=== PATIENT | male | born 1965 | race Caucasian/White ===

== ENCOUNTER 2018-01-01 16:31 | Emergency (ER) | payer SELFPAY ==
[~2018-01-01] VITALS: Ht 185.4 cm; Wt 81.6 kg
[2018-01-01] MEDS ORDERED: fentaNYL INJECTION 100 MCG/2 ML AMP IVP ONE (16:45)
[2018-01-01] MEDS ORDERED: CATHETER FLUSH 10 ML SYR IV PRN (17:00)
[2018-01-01] MEDS ORDERED: NS 250 ML (IVPB) BAG IV ONE (17:00)
[2018-01-01] MEDS ORDERED: IOHEXOL 350 MG/ML 100 ML (OMNIPAQUE 350) VIAL IV ONE (17:00)
[2018-01-01 17:06] LABS: ALANINE AMINOTRANSFERASE 13 U/L (0-55); ALBUMIN 4.2 GM/DL (3.2-4.5); ALKALINE PHOSPHATASE 51 U/L (40-136); BILIRUBIN,TOTAL 0.3 MG/DL (0.1-1.0); BUN/CREATININE RATIO 15; CALCIUM 8.6 MG/DL (8.5-10.1); CARBON DIOXIDE 23 MMOL/L (21-32); CHLORIDE 107 MMOL/L (98-107); CREATININE SERUM 0.78 MG/DL (0.60-1.30); GFR ESTIMATED > 60; GLUCOSE 124 MG/DL (70-105); POTASSIUM 3.9 MMOL/L (3.6-5.0); SODIUM 140 MMOL/L (135-145)
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
--- NOTE | 2018-01-01 17:40 | Diagnostic Imaging Report ---
INDICATION: Pain. FINDINGS: There is a comminuted fracture of the mid to distal left clavicular diaphysis. AC joint is intact as is the glenohumeral joint. Left lung is clear. Soft tissues are unremarkable. IMPRESSION: Comminuted fracture of the mid to distal left clavicular diaphysis. Dictated by: Dictated on workstation # [id number]
[2018-01-01 17:44] LABS: BILIRUBIN,URINE NEGATIVE (NEGATIVE); CLARITY,URINE CLEAR; COLOR,URINE YELLOW; GLUCOSE, URINE (UA) NEGATIVE (NEGATIVE); KETONES,URINE NEGATIVE (NEGATIVE); LEUKOCYTE ESTERASE ,URINE NEGATIVE (NEGATIVE); NITRITE,URINE NEGATIVE (NEGATIVE); PH,URINE 6.5 (5-9); PROTEIN,URINE NEGATIVE (NEGATIVE); UROBILINOGEN,URINE NORMAL (NORMAL)
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
[2018-01-01 18:03] LABS: BACTERIA,URINE NEGATIVE /HPF
[2018-01-01 18:43] LABS: HEMOGLOBIN 13.5 G/DL (13.3-17.7); RED BLOOD COUNT 4.24 10^6/uL (4.35-5.85); RED CELL DISTRIBUTION WIDTH 13.2 % (10.0-14.5); WHITE BLOOD COUNT 7.9 10^3/uL (4.3-11.0)
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
[2018-01-01] MEDS ORDERED: OXYC-197 PO (19:14)
[2018-01-01] MEDS ORDERED: RX-OXYCODONE/APAP 5-325 MG #4 TAB PK PO PRN (19:15)
[2018-01-01 19:46] VITALS: BP 123/76
== END 2018-01-01 19:46 | disposition home or self-care (01) ==
LOC: EDUNIT# 16:31 → ER 16:33
DX: S42.022A Displaced fracture of shaft of left clavicle, initial encounter for closed fracture (principal); S22.42XA Multiple fractures of ribs, left side, initial encounter for closed fracture; R40.2142 Coma scale, eyes open, spontaneous, at arrival to emergency department; R40.2252 Coma scale, best verbal response, oriented, at arrival to emergency department; R40.2362 Coma scale, best motor response, obeys commands, at arrival to emergency department; V86.09XA Driver of other special all-terrain or other off-road motor vehicle injured in traffic accident, initial encounter
CPT/HCPCS: 36415; 70450; 71045; 71260; 72125; 73030; 74177; 80053; 81000; 85027

== ENCOUNTER → 2021-02-25 | Outpatient (CLI) | payer BC ==
[~2021-02-25] MED LIST: OXYC1TAB87 PO
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
== END ==
LOC: RAD 10:21
PROVIDERS: ATTEND Internal Medicine
DX: M47.22 Other spondylosis with radiculopathy, cervical region (principal); M48.02 Spinal stenosis, cervical region; G96.191 Perineural cyst
CPT/HCPCS: 72141

== ENCOUNTER → 2021-03-09 | Outpatient (CLI) | payer BC ==
[~2021-03-09] MED LIST changes: +GADOTERATE 0.5 MMOL/ML (CLARISCAN) 15 ML VIAL IV ONE
--- NOTE | 2021-03-09 14:43 | Diagnostic Imaging Report ---
CLINICAL INDICATION: Recent cervical spine MRI showed abnormality of the thoracic spine. Patient has neck and left shoulder pain. EXAM: MRI of the thoracic spine performed without and with 15 mL of Clariscan IV contrast. Sequences include sagittal T2, sagittal T1, sagittal T2 fat-sat, axial T2, axial T1, sagittal T1 fat-sat post IV contrast, and axial T1 post IV contrast. COMPARISON: MRI of the cervical spine without contrast dated 12/26/2020. FINDINGS: There is a CSF signal intensity fluid collection, which appears intradural and posterior to the thoracic spinal cord. This fluid collection is seen at the lower T1 vertebral body region and extends down to the lower T8 level. There is amorphous low T2 signal seen posteriorly at the T8-T9 level, which may represent flow artifact versus amorphous tissue. There is no other significant complexity of this fluid collection seen. There is significant mass effect upon the thoracic spinal cord displacing it anteriorly and decreasing the caliber of the thoracic spinal cord, seen from the lower T1 level to the lower T8 level. There is no abnormal enhancement involving the thoracic spinal cord or cystic structure. Considerations may include an arachnoid cyst. Subdural location for this fluid collection is suspected to be unlikely given its configuration. There is prominence of the central canal of the upper thoracic spinal cord at the T1 vertebral body level concerning for syrinx. There are degenerative spurs seen throughout the thoracic spine and facet arthropathy. There is no lumbar spine fracture or dislocation. There is moderate right T2-T3 neural foramen narrowing due to facet arthropathy. There is a small T6-T7 posterior disc herniation with annular tear. There is no significant central canal or neural foramen narrowing. There is a small T8-T9 left subarticular disc herniation. There is [id number]-[id number] left neural foramen narrowing. There is minimal central canal narrowing. There is a moderate-sized T9-T10 left paracentral/subarticular disc spur which causes moderate central canal stenosis. There is [id number]-egljka left neural foramen narrowing and no significant right neural foramen narrowing. There is T10-T11 hypertrophic facet arthropathy causing [id number]-yhylnnws central canal narrowing. The remainder of the lumbar spine shows no significant central canal or neural foramen narrowing. IMPRESSION: 1: There is a large fluid collection which appears to be in the intrathecal region extending from the lower T1 level to the lower T8 level and causes significant mass effect upon the thoracic spinal cord displacing it anteriorly. There is marked compression and deformity upon the thoracic spinal cord. There is no abnormal enhancement associated with this area. There is amorphous and curvilinear low T2 signal involving the inferior aspect of this fluid collection but T8 level, which may represent flow artifact versus amorphous tissue. This fluid-filled lesion is concerning for spinal arachnoid cyst. 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 3: There is multilevel thoracic spine degenerative disease, as described above. Dictated by: Dictated on workstation # [id number]
== END ==
LOC: RAD 09:26
PROVIDERS: ATTEND Internal Medicine
DX: M47.814 Spondylosis without myelopathy or radiculopathy, thoracic region (principal); M48.04 Spinal stenosis, thoracic region; M89.8X8 Other specified disorders of bone, other site; M43.8X4 Other specified deforming dorsopathies, thoracic region; M25.78 Osteophyte, vertebrae; M51.24 Other intervertebral disc displacement, thoracic region; M51.34 Other intervertebral disc degeneration, thoracic region
CPT/HCPCS: 72157